=== PATIENT | female | born 1975 ===

== ENCOUNTER → 2022-06-19 14:19 | Outpatient (CLI) | payer OTHER | END | disposition home or self-care (01) | LOC: EKG 14:19 | PROVIDERS: ATTEND Internal Medicine | DX: I10 Essential (primary) hypertension (principal) ==

== ENCOUNTER 2022-06-27 10:30 | Day surgery (SDC) | payer OTHER ==
[2022-06-27] MEDS ORDERED: IBU400 MG PO (17:02)
[2022-06-27] MEDS ORDERED: ZITHROMAX500 MG PO (17:02)
== END 2022-06-27 19:25 | disposition home or self-care (01) ==
LOC: CIR.AMB 10:30
PROVIDERS: ATTEND Obstetrics & Gynecology
DX: N84.0 Polyp of corpus uteri (principal); Z88.0 Allergy status to penicillin